=== PATIENT | male | born 1995 | race Two or more races ===

== ENCOUNTER 2017-02-22 06:03 | Day surgery (SDC) | payer BC, OTHER ==
[~2017-02-22] VITALS: Ht 180.3 cm; Wt 108.0 kg
[2017-02-22] MEDS ORDERED: MORPHINE 2 MG/ML 1ML SYRINGE IV PRN (07:00)
[2017-02-22] MEDS ORDERED: ONDANSETRON 4MG/2ML VIAL (J2405) IV ONE (07:00)
[2017-02-22 07:43] LABS: ADD MANUAL DIFFER YES; MEAN CORPUSCULAR HEMOGLOBIN 28.7 pg (27.0-33.0); MEAN CORPUSCULAR HGB CONC 33.6 g/dl (32.0-36.5); MEAN CORPUSCULAR VOLUME 85.5 fl (80.0-96.0); PLATELET COUNT, AUTOMATED 236 k/mm3 (150-450); RED CELL DISTRIBUTION WIDTH 12.4 % (11.5-14.5)
[2017-02-22 07:44] LABS: ALBUMIN 4.2 GM/DL (3.2-5.2); ALBUMIN/GLOBULIN RATIO 1.31 (1.00-1.93); ALKALINE PHOSPHATASE 76 U/L (45-117); ALT/SGPT 50 U/L (12-78); ANION GAP 8 MEQ/L (8-16); AST/SGOT 24 U/L (15-37); BILIRUBIN,DIRECT < 0.1 MG/DL (0.0-0.2); BILIRUBIN,TOTAL 0.3 MG/DL (0.2-1.0); BLOOD UREA NITROGEN 21 MG/DL (7-18); CALCIUM LEVEL 8.8 MG/DL (8.5-10.1); CARBON DIOXIDE LEVEL 26 MEQ/L (21-32); CHLORIDE LEVEL 101 MEQ/L (98-107); CREATININE FOR GFR 1.05 MG/DL (0.70-1.30); GLOMERULAR FILTRATION RATE > 60.0 (>60); GLUCOSE, FASTING 95 MG/DL (70-105); POTASSIUM SERUM 3.9 MEQ/L (3.5-5.1); SODIUM LEVEL 135 MEQ/L (136-145); TOTAL PROTEIN 7.4 GM/DL (6.4-8.2)
[2017-02-22] MEDS ORDERED: ISOVUE-370 76% 100ML VIAL (Q9967) As Ordered ONE (08:13)
[2017-02-22 08:22] LABS: BASOPHILS 2 % (0-4); EOSINOPHILS 3 % (0-5)
--- NOTE | 2017-02-22 09:01 | REP ---
CT ABDOMEN AND PELVIS WITH IV CONTRAST: TECHNIQUE: Axial contrast enhanced images from the lung bases to the pubic symphysis using 100 mL Isovue 370 intravenous contrast material with multiplanar reformations. Visualized lung bases are clear. The liver, spleen, adrenals, pancreas, and kidneys are normal in appearance. There is no hydronephrosis. There is no abdominal aortic aneurysm. There is no adenopathy. There is no free air or free fluid. There is diffuse thickening and dilatation of the appendix with surrounding streaky inflammation consistent with appendicitis. A few subcentimeter lymph nodes are seen in the surrounding mesenteric fat. No pelvic mass is seen. Urinary bladder appears unremarkable. IMPRESSION: Findings compatible with appendicitis. No free air, free fluid, or fluid collection. Signed by Hussein North MD 02/22/2017 05:54 P
[2017-02-22] MEDS ORDERED: PIPERACILLIN/TAZOBACTAM SOD 3.375 GM in D5W MINI-BAG PLUS 50 ML IV ONE (09:15)
[2017-02-22] MEDS ORDERED: NS 1,000 ML IV ONE (09:15)
[2017-02-22] MEDS ORDERED: ACETAMINOPHEN TAB 650MG DOSE (2X325MG) PO PRN (13:00)
[2017-02-22] MEDS ORDERED: ONDANSETRON 4MG/2ML VIAL (J2405) IV PRN ×2 (13:00→20:00)
[2017-02-22] MEDS ORDERED: MORPHINE 4 MG/ML 1ML SYRINGE IV PRN (13:00)
[2017-02-22] MEDS: LR 1,000 ML IV SCH ×2 (13:12→21:51)
[2017-02-22 15:37] VITALS: BP 137/87
[2017-02-22] MEDS: PIPERACILLIN/TAZOBACTAM SOD 3.375 GM in D5W MINI-BAG PLUS 50 ML IV SCH ×2 (16:07→21:51)
[2017-02-22] MEDS ORDERED: LIDOCAINE 1% SDV INJ 30 ML VIAL As Ordered ONE (16:29)
[2017-02-22] MEDS ORDERED: BUPIVACAINE HCL 0.25% 30 ML VIAL As Ordered ONE (16:29)
[2017-02-22 17:00] VITALS: BP 172/83
[2017-02-22] MEDS ORDERED: MIDAZOLAM INJ 2 MG/2 ML VIAL (J2250) As Ordered ONE (18:52)
[2017-02-22] MEDS ORDERED: LIDOCAINE 2% INJ 100 MG/5 ML SDV (FOR ANES.) As Ordered ONE (18:52)
[2017-02-22] MEDS ORDERED: fentaNYL 250 MCG/5 ML INJECTION (J3010) As Ordered ONE (18:52)
[2017-02-22] MEDS ORDERED: GLYCOPYRROLATE INJ 0.2 MG/ML 2 ML VIAL As Ordered ONE (18:52)
[2017-02-22] MEDS ORDERED: PROPOFOL 200 MG/20 ML VIAL As Ordered ONE (18:52)
[2017-02-22] MEDS ORDERED: METOCLOPRAMIDE INJ 10MG/2ML VIAL (J2765) As Ordered ONE (18:52)
[2017-02-22] MEDS ORDERED: ONDANSETRON 4MG/2ML VIAL (J2405) As Ordered ONE (18:52)
[2017-02-22] MEDS ORDERED: NEOSTIGMINE 1MG/ML 5 ML SYRINGE (J2710) As Ordered ONE (18:52)
[2017-02-22] MEDS ORDERED: KETOROLAC 60 MG/2 ML VIAL (J1885) As Ordered ONE (18:52)
[2017-02-22] MEDS ORDERED: SUCCINYLCHOLINE 100 MG/5 ML SYRINGE (J0330) As Ordered ONE (18:53)
--- NOTE | 2017-02-22 19:39 | ROOPDOC ---
[facility] Report Of Operation Report of Operation DATE OF PROCEDURE: 02/22/17 PREPROCEDURE DIAGNOSES: acute appendicitis. POSTPROCEDURE DIAGNOSES: Acute appendicitis. PROCEDURE: Laparoscopic appendectomy. SURGEON: June Dhillon MD ORE BU[employer]ER: GEO Poole ANESTHESIA: General ESTIMATED BLOOD LOSS: Approximately 10 mL. COMPLICATIONS: None. REMARKS: Acutely inflamed appendix, thickened with fibrinous coating. No perforation.. DESCRIPTION OF PROCEDURE: Patient has been given a dose of Zosyn perioperatively.Patient was brought to the operating room, placed supine on the table. Sequential compression device placed for DVT prophylaxis. General endotracheal anesthesia started. The abdomen prepped and draped in usual sterile fashion. After a surgical timeout, we began our surgery Entry into the abdomen done through an incision above the umbilicus. Veress needle inserted on a controlled fashion. Intra-abdominal placement confirmed with saline drop technique. CO2 insufflation started to a pressure of 15 mmHg. Using the same incision a 12 mm port was placed under direct vision of laparoscope. Insertion site was inspected for injury and none was found. He was placed on a Trendelenburg position the right side tilted to about 30 to allow for better visualization of the appendix. 2 working ports were placed at the suprapubic area and left lower quadrant area under direct vision. Operative findings: The appendix is noted to be inflamed throughout its course worse on the distal half with vascular congestion, fibrin coating along the wall of the appendix, slight murky serous fluid along the right gutter and perihepatic area. The appendix was located, the adhered bowels and mesentery was widely dissected away from the appendix freeing up the appendix from the inflammatory adhesions using [place] instrument and suction irrigation. The Surrounding bowels retracted away from the appendix. This was grasped to pull the base of the appendix into view. The mesoappendix was divided using Harmonic scalpel down to the base. A Vicryl Endoloop was placed to ligate the appendix at its base then divided with a Harmonic Scalpel the stump cauterized. Stump appears healthy. Appendix was then delivered into an Endo Catch bag. After re-insufflation the surgical site was inspected for hemostasis, the visualized fluid collections irrigated and suctioned off until clear return. Surrounding areas of the abdomen and inspected for fluid collections or signs of injury. The abdomen was deflated. All ports removed. The umbilical fascial defect repaired with 0 Vicryl in a mattress fashion. All skin incisions closed with 4-0 Monocryl in a subcuticular fashion. Steri-Strips and gauze dressing used for wound coverage. Patient was promptly awake and extubated and brought to recovery room stable. All counts of sponges and instruments verified to be correct. . INEZ DHILLON MD Feb 22, 2017 19:33
[2017-02-22] MEDS ORDERED: fentaNYL 100 MCG/2 ML INJECTION (J3010) IV PRN (20:00)
[2017-02-22] MEDS ORDERED: LR 1,000 ML IV SCH (20:00)
[2017-02-22] MEDS ORDERED: PERCOCET 5MG/325MG TAB PO PRN (20:00)
[2017-02-22] MEDS ORDERED: PERCOCET 5MG/325MG TAB As Ordered ONE (20:06)
[2017-02-22 20:55] VITALS: BP 122/68
[2017-02-22 21:25] VITALS: BP 144/64
[2017-02-22 21:55] VITALS: BP 114/67
[2017-02-22 23:00] VITALS: BP 112/64
[2017-02-23] VITALS: BP 121/61
[2017-02-23 01:00] VITALS: BP 115/70
[2017-02-23 02:00] VITALS: BP 115/72
[2017-02-23] MEDS: PIPERACILLIN/TAZOBACTAM SOD 3.375 GM in D5W MINI-BAG PLUS 50 ML IV SCH ×2 (03:44→08:22)
[2017-02-23 04:00] VITALS: BP 117/68
[2017-02-23] MEDS: LR 1,000 ML IV SCH (04:50)
[2017-02-23 06:56] LABS: ADD MANUAL DIFFER YES; MEAN CORPUSCULAR HEMOGLOBIN 29.7 pg (27.0-33.0); MEAN CORPUSCULAR HGB CONC 33.9 g/dl (32.0-36.5); MEAN CORPUSCULAR VOLUME 87.6 fl (80.0-96.0); PLATELET COUNT, AUTOMATED 232 k/mm3 (150-450); RED CELL DISTRIBUTION WIDTH 12.6 % (11.5-14.5); WHITE BLOOD COUNT 10.1 K/mm3 (4.0-10.0)
[2017-02-23 07:08] LABS: ANION GAP 7 MEQ/L (8-16); BLOOD UREA NITROGEN 10 MG/DL (7-18); CALCIUM LEVEL 8.8 MG/DL (8.5-10.1); CARBON DIOXIDE LEVEL 28 MEQ/L (21-32); CHLORIDE LEVEL 106 MEQ/L (98-107); GLOMERULAR FILTRATION RATE > 60.0 (>60); GLUCOSE, FASTING 95 MG/DL (70-105); POTASSIUM SERUM 3.8 MEQ/L (3.5-5.1); SODIUM LEVEL 141 MEQ/L (136-145)
[2017-02-23 07:29] LABS: EOSINOPHILS 3 % (0-5)
[2017-02-23 08:00] VITALS: BP 138/80
[2017-02-23] MEDS ORDERED: NORC1TAB4 PO (08:22)
[2017-02-23] MEDS ORDERED: AUGM875T28 PO (08:23)
[2017-02-23] MEDS ORDERED: FLAG500T PO (08:25)
--- NOTE | 2017-02-23 10:05 | IPNPDOC ---
Subjective General Date/Time Seen The patient was seen on 02/23/17 at 10:02. Subject Chief Complaint/History The patient is a 21-year-old male admitted with a reason for visit of Acute Appendicitis. Reports he is doing well. Minimal pain at the umbilical port site. Pain and discomfort at the RLQ area resolved. Tolerated small amount of solid food last night. Current Medications Current Medications Current Medications Acetaminophen (Tylenol Tab) 650 mg Q4HP PRN PO MILD PAIN or TEMP > 101; Start 02/22/17 at 13:00; Stop 03/24/17 at 12:59 Fentanyl Citrate (Sublimaze) 25 mcg Q5MP PRN IV MODERATE PAIN (PS 4-7); Start 02/22/17 at 20:00; Stop 02/22/17 at 21:00; Status DC Home Med (Med Rec Complete!) ASDIRECTED XX ; Start 02/22/17 at 11:45; Stop at 11:45; Status DC Lactated Ringer's 1,000 ml @ 100 mls/hr Q10H IV ; Start 02/22/17 at 20:00; Stop 02/22/17 at 21:00; Status DC Lactated Ringer's 1,000 ml @ 125 mls/hr Q8H IV Last administered on 02/22/17 21:51; Start 02/22/17 at 12:50; Stop 03/24/17 at 12:49 Morphine Sulfate (Morphine Sulfate Inj) 2 mg Q15M PRN IV MODERATE/SEVERE PAIN ( PS 5-10) Last administered on 02/22/17 07:24; Start 02/22/17 at 07:00 Morphine Sulfate (Morphine Sulfate Inj) 4 mg Q2HP PRN IV SEVERE PAIN (PS 8-10) ; Start 02/22/17 at 13:00; Stop 03/01/17 at 12:59 Ondansetron HCl (ZOFRAN INJection) 4 mg Q4HP PRN IV NAUSEA OR VOMITING; Start 02/22/17 at 20:00; Stop 02/22/17 at 21:00; Status DC Ondansetron HCl (ZOFRAN INJection) 4 mg Q6HP PRN IV NAUSEA OR VOMITING; Start 02/22/17 at 13:00; Stop 03/24/17 at 12:59 Oxycodone/ Acetaminophen (Percocet 5mg/ 325mg Tablet) 1 tab ASDIRECTED PRN PO MILD/MODERATE PAIN (PS 1-7) Last administered on 02/22/17 20:05; Start at 20:00; Stop 02/22/17 at 21:00; Status DC Piperacillin Sod/ Tazobactam Sod 3.375 gm/Dextrose 50 ml @ 50 mls/hr Q6H IV Last administered on 02/23/17 08:22; Start 02/22/17 at 15:00; Stop 03/01/17 at 14:59 Allergies Coded Allergies: No Known Allergies (Unverified , 02/22/17) Objective Physical Examination Examination GENERAL APPEARANCE:Patient seen, laying in bed, awake, alert, and oriented. Comfortable, in no acute distress. SKIN: Warm and moist. HEENT: Normocephalic, atraumatic. [place] palpebral conjunctiva, anicteric sclerae. Lips and mucosa appear moist. NECK: Supple, no thyromegaly. No obvious jugular venous distention. LUNGS: Clear to auscultation bilaterally. No wheezing appreciated. HEART: No chest wall abnormalities. Regular rate and rhythm with no murmurs appreciated. ABDOMEN: Abdomen is mild obese, soft, nondistended, mild incisional tenderness at the umbilical port site. Nontender over RLQ area. EXTREMITIES: Extremities have no deformities. No edema identified. Vital Signs Vital Signs Date Time Temp Pulse Resp B/P (MAP) Pulse Ox O2 Delivery O2 Flow Rate FiO2 02/23/17 08:00 98.9 61 18 138/80 (99) 99 Room Air 02/22/17 19:57 2 I&Os I&O- Last 24 Hours up to 6 AM 02/23/17 05:59 Intake Total 4160 ml Output Total 1660 ml Balance 2500 ml Laboratory Data CBC/BMP Laboratory Tests 02/23/17 06:27 Red Blood Count 4.76, Mean Corpuscular Volume 87.6, Mean Corpuscular Hemoglobin 29.7, Mean Corpuscular Hemoglobin Concent 33.9, Red Cell Distribution Width 12.6 , Calcium Level 8.8 Impression Acute Appendicitis POD1 Laparoscopic Appendectomy He is doing well postop. His leukocytosis has gone down almost to normal. I will d/c him on one week of antibiotics given findings of fibrinous and purulent coating on the appendix. Follow up with me in 2 weeks Plan / VTE VTE Prophylaxis Ordered?: Yes INEZ ESPARZA MD Feb 23, 2017 10:05
== END 2017-02-23 10:43 | disposition home or self-care (01) ==
LOC: M ED 06:03 → M SDC 12:50 → M PED 14:27 → M SDC 02-23 10:43
PROVIDERS: ATTEND Surgery
DX: K35.3 Acute appendicitis with localized peritonitis (principal); R10.32 Left lower quadrant pain; F17.200 Nicotine dependence, unspecified, uncomplicated
CPT/HCPCS: 36415; 44970; 74177; 80048; 80076; 81001; 83690; 85025; 88304; 96365; 96366; 96375; 96376; 99284; J0330; J1885; J2250; J2405; J2543; J2710; J2765; J3010; Q9967

== ENCOUNTER → 2017-04-12 | Outpatient (REF) | payer OTHER ==
[~2017-04-12] MED LIST: AUGM875T28 PO; FLAG500T PO; NORC1TAB4 PO
== END ==
LOC: M SFHCPLAZ 08:41
PROVIDERS: ATTEND Nurse Practitioner Family
DX: Z00.00 Encounter for general adult medical examination without abnormal findings (principal); E66.9 Obesity, unspecified; Z13.220 Encounter for screening for lipoid disorders